=== PATIENT | male | born 1965 | race Caucasian/White ===

== ENCOUNTER 2016-08-18 18:43 | Emergency (ER) | payer OTHER ==
[2016-08-18 19:17] LABS: BASO # 0.1 10_X3_uL (0.0-0.1); BASO % 0.5 % (0.2-1.2); EOS # 0.1 10_X3_uL (0.0-0.5); EOS % 1.2 % (0.8-7.0); GRAN # 7.4 10_X3_uL (1.8-5.4); GRAN % 67.8 % (34.0-67.9); HEMATOCRIT 44.8 % (40-51); HEMOGLOBIN 15.8 g/dL (13.7-17.5); LYMPH # 2.5 10_X3_uL (1.3-3.6); LYMPH % 22.4 % (21.8-53.1); MEAN CORPUSCULAR HEMOGLOBIN 32.8 pg (27.0-33.0); MEAN CORPUSCULAR HGB CONC 35.3 g/dL (32.0-36.0); MEAN CORPUSCULAR VOLUME 92.9 fL (79-92); MEAN PLATELET VOLUME 10.5 fl (7.5-11.5); MONO # 0.9 10_X3_uL (0.3-0.8); MONO % 8.1 % (5.3-12.2); PLATELET COUNT 227 x10_3/uL (163-337); RED BLOOD COUNT 4.82 x10_6/uL (4.6-6.1); RED CELL DISTRIBUTION WIDTH 15.3 % (11.6-14.4)
[2016-08-18 19:40] LABS: ALBUMIN 4.4 gm/dL (3.4-5.0); ALKALINE PHOSPHATASE 46 U/L (50-136); ALT/SGPT 63 U/L (7.53-40.17); AST/SGOT 50 U/L (6.66-35.34); BILIRUBIN,TOTAL 0.98 mg/dL (0.0-1.0); BLOOD UREA NITROGEN 9 mg/dL (7-18); CALCIUM 8.8 mg/dL (8.7-10.7); CARBON DIOXIDE 24 mmol/L (21-32); CREATINE KINASE 91 U/L (35-232); CREATININE 0.9 mg/dL (0.6-1.3); GLUCOSE,RANDOM 128 mg/dL (70-99); POTASSIUM 3.8 mmol/L (3.5-5.1); SODIUM 137 mmol/L (136-145); TOTAL PROTEIN 6.9 gm/dL (6.4-8.2)
== END 2016-08-19 00:05 | disposition short-term general hospital (02) ==
LOC: ER 18:43
PROVIDERS: Emergency Medicine
DX: R07.89 Other chest pain (principal); R51 Headache; R11.0 Nausea; I11.0 Hypertensive heart disease with heart failure; I50.9 Heart failure, unspecified; F17.210 Nicotine dependence, cigarettes, uncomplicated; Z79.82 Long term (current) use of aspirin; Z79.899 Other long term (current) drug therapy; Z88.5 Allergy status to narcotic agent
CPT/HCPCS: 36415; 71010; 80053; 82550; 82553; 83880; 85025; 93005; 96374; 96375; 96376; 99070; 99285-25

== ENCOUNTER 2016-09-17 12:16 | Emergency (ER) | payer OTHER | END 2016-09-17 12:32 | disposition home or self-care (01) | LOC: ER 12:16 | DX: M25.561 Pain in right knee (principal); G89.29 Other chronic pain; Z98.890 Other specified postprocedural states; Z88.5 Allergy status to narcotic agent; Z79.899 Other long term (current) drug therapy | CPT/HCPCS: 99282 ==